=== PATIENT | female | born 1980 | race Caucasian/White ===

== ENCOUNTER 2018-07-01 14:50 | Inpatient (IN) | payer OTHER ==
[~2018-07-01] VITALS: Ht 157.5 cm; Wt 77.6 kg
[2018-07-01] MEDS ORDERED: TiZANidine HCL 4 MG TABLET PO PRN (16:45)
[2018-07-01] MEDS ORDERED: DOCUSATE SODIUM 283 MG/5 ML MINI-ENEMA PR PRN (16:45)
[2018-07-01 16:56] VITALS: BP 128/70
[2018-07-01 17:00] VITALS: BP 126/70
[2018-07-01] MEDS: OxyCODONE HCL 5 MG IR TABLET PO PRN ×2 (17:06→21:27)
[2018-07-01 17:20] LABS: APPEARANCE,URINE CLEAR (CLEAR); BILIRUBIN,URINE NEGATIVE (NEGATIVE); GLUCOSE, URINE (UA) NEGATIVE (NEGATIVE); KETONES,URINE NEGATIVE (NEGATIVE); LEUKOCYTE ESTERASE ,URINE NEGATIVE (NEGATIVE); NITRATE,URINE NEGATIVE (NEGATIVE); OCCULT BLOOD,URINE LARGE (NEGATIVE); PH,URINE 7.5 (5.0-8.0); PROTEIN,URINE NEGATIVE (NEGATIVE); UROBILINOGEN,URINE 0.2 mg/dL (<=1.0)
[2018-07-01 17:27] LABS: RBC,URINE 26-50 /HPF (0-2)
[2018-07-01 17:29] LABS: BACTERIA,URINE Rare /HPF (None Seen); SQUAMOUS EPITHELIAL CELL,UR Few /LPF (None Seen); WBC,URINE 0-2 /HPF (0-5)
[2018-07-01] MEDS: GABAPENTIN 300 MG CAPSULE PO SCH (20:17)
[2018-07-01] MEDS: SENNA 187 MG TABLET PO SCH (20:17)
[2018-07-01] MEDS: DOCUSATE SODIUM 250 MG CAPSULE PO SCH (20:17)
[2018-07-01 21:25] VITALS: BP 122/57
[2018-07-02 00:50] VITALS: BP 102/63
[2018-07-02] MEDS: ACETAMINOPHEN 325 MG TABLET PO PRN ×2 (00:50→16:49)
[2018-07-02 06:47] LABS: BASOPHILS % (AUTO) 0.7 % (0.0-2.0); HEMATOCRIT 27.7 % (36-46); HEMOGLOBIN 8.8 g/dL (12.0-16.0); LYMPHOCYTES # (AUTO) 2.6 K/uL (1.0-4.8); LYMPHOCYTES % (AUTO) 40.8 % (22.0-44.0); MEAN CORPUSCULAR HEMOGLOBIN 22.5 pg (26.0-34.0); MEAN CORPUSCULAR HGB CONC 31.6 G/dL (31.0-37.0); MEAN CORPUSCULAR VOLUME 71 fL (80-100); MONOCYTES # (AUTO) 0.4 K/uL (0.1-1.0); MONOCYTES % (AUTO) 6.3 % (2.0-9.0); NEUTROPHILS # (AUTO) 3.3 K/uL (1.8-7.7); NEUTROPHILS % (AUTO) 51.2 % (40.0-70.0); PLATELET COUNT (AUTO) 237 K/uL (150-450); RED CELL DISTRIBUTION WIDTH 26.5 % (11.5-14.5)
[2018-07-02 06:59] LABS: ALANINE AMINOTRANSFERASE 17 U/L (12-78); ALBUMIN 2.8 g/dL (3.4-5.0); ALKALINE PHOSPHATASE 65 U/L (46-116); ANION GAP 3 mmol/L (8-16); ASPARTATE AMINOTRANSFERASE 18 U/L (15-37); BILIRUBIN,TOTAL 0.5 mg/dL (0.1-1.0); CALCIUM, TOTAL 8.5 mg/dL (8.8-10.5); CARBON DIOXIDE 30 mmol/L (22-29); CHLORIDE 102 mmol/L (98-107); CREATININE 0.84 mg/dL (0.60-1.30); GLOMERULAR FILTR. RATE CALC > 60 mL/min (>60); GLUCOSE,RANDOM 99 mg/dL (70-110); POTASSIUM 4.2 mmol/L (3.5-5.1); SODIUM SERUM 135 mmol/L (136-145); TOTAL PROTEIN, SERUM 6.6 g/dL (6.4-8.2); UREA NITROGEN, BLOOD 8 mg/dL (7-18)
[2018-07-02] MEDS ORDERED: FERG325 PO (07:27)
[2018-07-02] MEDS ORDERED: MEDR4 PO (07:27)
[2018-07-02] MEDS ORDERED: NAPR-943 PO (07:27)
[2018-07-02 07:30] VITALS: BP 138/92
[2018-07-02] MEDS: GABAPENTIN 300 MG CAPSULE PO SCH ×3 (07:48→20:22)
[2018-07-02] MEDS: FERROUS GLUCONATE 324 MG TABLET PO SCH (07:48)
[2018-07-02] MEDS: DOCUSATE SODIUM 250 MG CAPSULE PO SCH ×2 (07:48→20:23)
[2018-07-02] MEDS: OxyCODONE HCL 5 MG IR TABLET PO PRN ×2 (11:44→18:13)
[2018-07-02 16:42] VITALS: BP 121/84
[2018-07-02] MEDS: SENNA 187 MG TABLET PO SCH (20:22)
[2018-07-03 01:37] VITALS: BP 122/82
[2018-07-03] MEDS: ACETAMINOPHEN 325 MG TABLET PO PRN ×3 (01:40→22:17)
[2018-07-03 08:14] VITALS: BP 116/69
[2018-07-03] MEDS: FERROUS GLUCONATE 324 MG TABLET PO SCH (08:29)
[2018-07-03] MEDS: DOCUSATE SODIUM 250 MG CAPSULE PO SCH ×2 (08:29→20:07)
[2018-07-03] MEDS: GABAPENTIN 300 MG CAPSULE PO SCH ×3 (08:29→20:07)
[2018-07-03] MEDS: OxyCODONE HCL 5 MG IR TABLET PO PRN ×2 (11:23→19:55)
[2018-07-03] MEDS ORDERED: ERGOCALCIFEROL (VIT D2) 50,000 UNITS CAPSULE PO ONE (12:45)
[2018-07-03] MEDS ORDERED: *NON-FORMULARY MED [ENTER DRUG, DOSE, FREQ IN COMMENTS] CLINICAL ONE (12:45)
[2018-07-03] MEDS ORDERED: CAFFEINE PO PRN (13:30)
[2018-07-03] MEDS ORDERED: [UNRECOGNIZED DRUG - OTHER] PO PRN (13:30)
[2018-07-03] MEDS ORDERED: ACETAMINOPHEN PO PRN (13:30)
[2018-07-03 15:48] VITALS: BP 121/78
[2018-07-03] MEDS: NYSTATIN 500,000 UNITS/5 ML SUSPENSION UDCUP PO SCH ×2 (16:07→20:07)
[2018-07-03 19:54] VITALS: BP 108/77
[2018-07-03] MEDS: SENNA 187 MG TABLET PO SCH (20:07)
[2018-07-03 23:15] VITALS: BP 129/72
[2018-07-04 07:15] VITALS: BP 115/73
[2018-07-04] MEDS: NYSTATIN 500,000 UNITS/5 ML SUSPENSION UDCUP PO SCH ×3 (08:00→21:21)
[2018-07-04] MEDS: GABAPENTIN 300 MG CAPSULE PO SCH ×3 (08:00→21:21)
[2018-07-04] MEDS: FERROUS GLUCONATE 324 MG TABLET PO SCH (08:00)
[2018-07-04] MEDS: DOCUSATE SODIUM 250 MG CAPSULE PO SCH ×2 (08:01→21:00)
[2018-07-04] MEDS: OxyCODONE HCL 5 MG IR TABLET PO PRN ×2 (08:56→21:57)
[2018-07-04] MEDS: ACETAMINOPHEN 325 MG TABLET PO PRN (10:21)
[2018-07-04 17:15] VITALS: BP 117/73
[2018-07-04] MEDS: SENNA 187 MG TABLET PO SCH (21:00)
[2018-07-05 00:44] VITALS: BP 110/71
[2018-07-05] MEDS: ACETAMINOPHEN 325 MG TABLET PO PRN ×2 (00:44→15:54)
[2018-07-05 07:39] VITALS: BP 92/60
[2018-07-05] MEDS: GABAPENTIN 300 MG CAPSULE PO SCH ×3 (08:06→20:50)
[2018-07-05] MEDS: NYSTATIN 500,000 UNITS/5 ML SUSPENSION UDCUP PO SCH ×3 (08:06→20:50)
[2018-07-05] MEDS: DOCUSATE SODIUM 250 MG CAPSULE PO SCH ×2 (08:07→20:51)
[2018-07-05] MEDS: FERROUS GLUCONATE 324 MG TABLET PO SCH (08:07)
[2018-07-05] MEDS: OxyCODONE HCL 5 MG IR TABLET PO PRN (08:52)
[2018-07-05 15:51] VITALS: BP 124/56
[2018-07-05] MEDS: ONDANSETRON HCL 4 MG TABLET PO PRN (15:54)
[2018-07-05] MEDS: SENNA 187 MG TABLET PO SCH (20:51)
[2018-07-05 23:44] VITALS: BP 110/63
[2018-07-06 07:25] VITALS: BP 101/61
[2018-07-06] MEDS: OxyCODONE HCL 5 MG IR TABLET PO PRN ×2 (08:24→17:39)
[2018-07-06] MEDS: LIDOCAINE 5% TRANSDERMAL PATCH TD SCH (08:25)
[2018-07-06] MEDS: NYSTATIN 500,000 UNITS/5 ML SUSPENSION UDCUP PO SCH ×3 (08:26→21:06)
[2018-07-06] MEDS: FERROUS GLUCONATE 324 MG TABLET PO SCH (08:26)
[2018-07-06] MEDS: GABAPENTIN 300 MG CAPSULE PO SCH ×3 (08:26→21:06)
[2018-07-06] MEDS: DOCUSATE SODIUM 250 MG CAPSULE PO SCH ×2 (08:26→21:06)
[2018-07-06] MEDS: ONDANSETRON HCL 4 MG TABLET PO PRN (10:09)
[2018-07-06] MEDS: ACETAMINOPHEN 325 MG TABLET PO PRN ×2 (11:48→21:07)
[2018-07-06 14:44] LABS: HEMATOCRIT 26.8 % (36-46); HEMOGLOBIN 8.3 g/dL (12.0-16.0); MEAN CORPUSCULAR HEMOGLOBIN 22.4 pg (26.0-34.0); MEAN CORPUSCULAR VOLUME 72 fL (80-100); PLATELET COUNT (AUTO) 333 K/uL (150-450); RED CELL DISTRIBUTION WIDTH 26.6 % (11.5-14.5)
[2018-07-06 14:45] LABS: BAND NEUTROPHILS % (MANUAL) 0 % (0-5)
[2018-07-06 15:20] VITALS: BP 101/62
[2018-07-06 15:30] LABS: EOSINOPHILS % (MANUAL) 1 % (1-6); LYMPHOCYTES % (MANUAL) 26 % (22-44); MONOCYTES % (MANUAL) 7 % (2-9); SEGMENTED NEUTROPHILS % 66 % (40-70)
[2018-07-06 16:21] LABS: APPEARANCE,URINE CLEAR (CLEAR); BILIRUBIN,URINE NEGATIVE (NEGATIVE); GLUCOSE, URINE (UA) NEGATIVE (NEGATIVE); KETONES,URINE NEGATIVE (NEGATIVE); LEUKOCYTE ESTERASE ,URINE NEGATIVE (NEGATIVE); NITRATE,URINE NEGATIVE (NEGATIVE); OCCULT BLOOD,URINE NEGATIVE (NEGATIVE); PH,URINE 5.5 (5.0-8.0); PROTEIN,URINE NEGATIVE (NEGATIVE); UROBILINOGEN,URINE 0.2 mg/dL (<=1.0)
[2018-07-06 16:33] LABS: SQUAMOUS EPITHELIAL CELL,UR Few /LPF (None Seen)
[2018-07-06 16:35] LABS: BACTERIA,URINE None Seen /HPF (None Seen); MUCUS,URINE Few LPF (None Seen); RBC,URINE None Seen /HPF (0-2); WBC,URINE None Seen /HPF (0-5)
[2018-07-06] MEDS: SENNA 187 MG TABLET PO SCH (21:06)
[2018-07-06] MEDS: -LIDODERM PATCH NOTE- MISC SCH (21:07)
[2018-07-06 23:28] VITALS: BP 98/57
[2018-07-07 07:18] VITALS: BP 104/66
[2018-07-07] MEDS: OxyCODONE HCL 5 MG IR TABLET PO PRN ×2 (07:47→19:43)
[2018-07-07] MEDS: GABAPENTIN 300 MG CAPSULE PO SCH ×3 (07:51→21:28)
[2018-07-07] MEDS: FERROUS GLUCONATE 324 MG TABLET PO SCH (07:51)
[2018-07-07] MEDS: NYSTATIN 500,000 UNITS/5 ML SUSPENSION UDCUP PO SCH ×3 (07:51→21:28)
[2018-07-07] MEDS: DOCUSATE SODIUM 250 MG CAPSULE PO SCH ×2 (07:52→21:28)
[2018-07-07] MEDS: LIDOCAINE 5% TRANSDERMAL PATCH TD SCH (07:52)
[2018-07-07] MEDS: ONDANSETRON HCL 4 MG TABLET PO PRN (10:58)
[2018-07-07 15:50] VITALS: BP 110/62
[2018-07-07] MEDS: ACETAMINOPHEN 325 MG TABLET PO PRN ×2 (16:54→23:33)
[2018-07-07] MEDS: SENNA 187 MG TABLET PO SCH (21:28)
[2018-07-07] MEDS: -LIDODERM PATCH NOTE- MISC SCH (21:28)
[2018-07-08 08:00] VITALS: BP 107/52
[2018-07-08] MEDS ORDERED: ERGOCALCIFEROL (VIT D2) 50,000 UNITS CAPSULE PO SCH (09:00)
[2018-07-08] MEDS: DOCUSATE SODIUM 250 MG CAPSULE PO SCH ×2 (09:14→20:38)
[2018-07-08] MEDS: ERGOCALCIFEROL (VIT D2) 50,000 UNITS CAPSULE PO SCH (09:14)
[2018-07-08] MEDS: NYSTATIN 500,000 UNITS/5 ML SUSPENSION UDCUP PO SCH ×3 (09:14→20:38)
[2018-07-08] MEDS: GABAPENTIN 300 MG CAPSULE PO SCH ×3 (09:15→20:38)
[2018-07-08] MEDS: FERROUS GLUCONATE 324 MG TABLET PO SCH (09:15)
[2018-07-08] MEDS: LIDOCAINE 5% TRANSDERMAL PATCH TD SCH (09:16)
[2018-07-08] MEDS ORDERED: MAGNESIUM HYDROXIDE SUSPENSION 30 ML UDCUP PO PRN (12:45)
[2018-07-08] MEDS: OxyCODONE HCL 5 MG IR TABLET PO PRN (13:02)
[2018-07-08 15:55] VITALS: BP 119/78
[2018-07-08] MEDS: FLUTICASONE PROPIONATE 50 MCG/SPRAY 16 GM NASAL SPRAY NASAL SCH (20:37)
[2018-07-08] MEDS: SENNA 187 MG TABLET PO SCH (20:38)
[2018-07-08] MEDS: -LIDODERM PATCH NOTE- MISC SCH (20:39)
[2018-07-08 23:42] VITALS: BP 121/77
[2018-07-09 07:44] VITALS: BP 105/61
[2018-07-09] MEDS: LIDOCAINE 5% TRANSDERMAL PATCH TD SCH (09:05)
[2018-07-09] MEDS: FERROUS GLUCONATE 324 MG TABLET PO SCH (09:05)
[2018-07-09] MEDS: OxyCODONE HCL 5 MG IR TABLET PO PRN (09:05)
[2018-07-09] MEDS: DOCUSATE SODIUM 250 MG CAPSULE PO SCH ×2 (09:06→20:23)
[2018-07-09] MEDS: FLUTICASONE PROPIONATE 50 MCG/SPRAY 16 GM NASAL SPRAY NASAL SCH ×2 (09:06→20:23)
[2018-07-09] MEDS: GABAPENTIN 300 MG CAPSULE PO SCH ×3 (09:06→20:23)
[2018-07-09] MEDS: NYSTATIN 500,000 UNITS/5 ML SUSPENSION UDCUP PO SCH ×3 (09:06→20:23)
[2018-07-09 15:21] VITALS: BP 116/85
[2018-07-09] MEDS: -LIDODERM PATCH NOTE- MISC SCH (20:22)
[2018-07-09] MEDS: SENNA 187 MG TABLET PO SCH (20:24)
[2018-07-09 23:00] VITALS: BP 116/67
[2018-07-10 07:31] VITALS: BP 104/58
[2018-07-10] MEDS ORDERED: ACETAMINOPHEN PO PRN (08:27)
[2018-07-10] MEDS ORDERED: CAFFEINE PO PRN (08:27)
[2018-07-10] MEDS ORDERED: [UNRECOGNIZED DRUG - OTHER] PO PRN (08:27)
[2018-07-10] MEDS: LIDOCAINE 5% TRANSDERMAL PATCH TD SCH (09:07)
[2018-07-10] MEDS: FERROUS GLUCONATE 324 MG TABLET PO SCH (09:08)
[2018-07-10] MEDS: DOCUSATE SODIUM 250 MG CAPSULE PO SCH ×2 (09:08→20:30)
[2018-07-10] MEDS: GABAPENTIN 300 MG CAPSULE PO SCH ×3 (09:08→20:30)
[2018-07-10] MEDS: FLUTICASONE PROPIONATE 50 MCG/SPRAY 16 GM NASAL SPRAY NASAL SCH ×2 (09:08→20:30)
[2018-07-10] MEDS: NYSTATIN 500,000 UNITS/5 ML SUSPENSION UDCUP PO SCH ×2 (09:08→16:03)
[2018-07-10] MEDS: OxyCODONE HCL 5 MG IR TABLET PO PRN ×2 (10:54→17:44)
[2018-07-10 15:06] VITALS: BP 106/68
[2018-07-10] MEDS: -LIDODERM PATCH NOTE- MISC SCH (20:30)
[2018-07-10] MEDS: SENNA 187 MG TABLET PO SCH (20:30)
[2018-07-10] MEDS: ACETAMINOPHEN 325 MG TABLET PO PRN (20:39)
[2018-07-10 23:26] VITALS: BP 111/65
[2018-07-11 07:20] VITALS: BP 101/60
[2018-07-11] MEDS: GABAPENTIN 300 MG CAPSULE PO SCH ×3 (10:07→21:18)
[2018-07-11] MEDS: LIDOCAINE 5% TRANSDERMAL PATCH TD SCH (10:07)
[2018-07-11] MEDS: FERROUS GLUCONATE 324 MG TABLET PO SCH (10:07)
[2018-07-11] MEDS: DOCUSATE SODIUM 250 MG CAPSULE PO SCH ×2 (10:07→21:00)
[2018-07-11] MEDS: FLUTICASONE PROPIONATE 50 MCG/SPRAY 16 GM NASAL SPRAY NASAL SCH ×2 (10:07→21:18)
[2018-07-11 15:30] VITALS: BP 119/85
[2018-07-11] MEDS: ACETAMINOPHEN 325 MG TABLET PO PRN (18:18)
[2018-07-11] MEDS: SENNA 187 MG TABLET PO SCH (21:00)
[2018-07-11] MEDS: FERROUS SULFATE 325 MG EC TABLET PO SCH (21:19)
[2018-07-11] MEDS: -LIDODERM PATCH NOTE- MISC SCH (21:19)
[2018-07-12] VITALS: BP 115/74
[2018-07-12 07:00] VITALS: BP 108/58
[2018-07-12] MEDS: DOCUSATE SODIUM 250 MG CAPSULE PO SCH ×3 (09:00→20:05)
[2018-07-12] MEDS: GABAPENTIN 300 MG CAPSULE PO SCH ×3 (09:05→20:05)
[2018-07-12] MEDS: FERROUS SULFATE 325 MG EC TABLET PO SCH ×2 (09:05→20:05)
[2018-07-12] MEDS: FERROUS GLUCONATE 324 MG TABLET PO SCH (09:05)
[2018-07-12] MEDS: LIDOCAINE 5% TRANSDERMAL PATCH TD SCH (09:05)
[2018-07-12] MEDS: FLUTICASONE PROPIONATE 50 MCG/SPRAY 16 GM NASAL SPRAY NASAL SCH ×2 (09:05→20:05)
[2018-07-12 15:10] VITALS: BP 123/70
[2018-07-12] MEDS: -LIDODERM PATCH NOTE- MISC SCH (20:05)
[2018-07-12] MEDS: SENNA 187 MG TABLET PO SCH (20:06)
[2018-07-12 23:30] VITALS: BP 103/48
[2018-07-13 07:56] VITALS: BP 85/49
[2018-07-13] MEDS: DOCUSATE SODIUM 250 MG CAPSULE PO SCH ×2 (09:00→20:30)
[2018-07-13] MEDS: LIDOCAINE 5% TRANSDERMAL PATCH TD SCH (09:00)
[2018-07-13] MEDS: FERROUS SULFATE 325 MG EC TABLET PO SCH ×2 (09:22→20:29)
[2018-07-13] MEDS: FLUTICASONE PROPIONATE 50 MCG/SPRAY 16 GM NASAL SPRAY NASAL SCH ×2 (09:22→20:29)
[2018-07-13] MEDS: GABAPENTIN 300 MG CAPSULE PO SCH ×3 (09:22→20:29)
[2018-07-13] MEDS: FERROUS GLUCONATE 324 MG TABLET PO SCH (09:22)
[2018-07-13] MEDS: ACETAMINOPHEN 325 MG TABLET PO PRN ×2 (11:20→18:17)
[2018-07-13] MEDS: OxyCODONE HCL 5 MG IR TABLET PO PRN (14:05)
[2018-07-13 15:55] VITALS: BP 121/73
[2018-07-13] MEDS: SENNA 187 MG TABLET PO SCH (20:30)
[2018-07-13] MEDS: -LIDODERM PATCH NOTE- MISC SCH (20:34)
[2018-07-13 23:25] VITALS: BP 110/75
[2018-07-14 06:49] LABS: HEMATOCRIT 28.2 % (36-46); HEMOGLOBIN 8.8 g/dL (12.0-16.0); MEAN CORPUSCULAR HEMOGLOBIN 23.2 pg (26.0-34.0); MEAN CORPUSCULAR HGB CONC 31.3 G/dL (31.0-37.0); MEAN CORPUSCULAR VOLUME 74 fL (80-100); PLATELET COUNT (AUTO) 363 K/uL (150-450); RED BLOOD CELL COUNT(AUTO) 3.81 MIL/uL (4.00-5.20); RED CELL DISTRIBUTION WIDTH 26.6 % (11.5-14.5)
[2018-07-14 07:13] VITALS: BP 101/67
[2018-07-14 07:42] LABS: BAND NEUTROPHILS % (MANUAL) 0 % (0-5)
[2018-07-14 07:45] LABS: BASOPHILS % (MANUAL) 1 % (0-2); EOSINOPHILS % (MANUAL) 5 % (1-6); LYMPHOCYTES % (MANUAL) 27 % (22-44); MONOCYTES % (MANUAL) 4 % (2-9); SEGMENTED NEUTROPHILS % 63 % (40-70)
[2018-07-14] MEDS: GABAPENTIN 300 MG CAPSULE PO SCH ×3 (08:57→20:00)
[2018-07-14] MEDS: FERROUS SULFATE 325 MG EC TABLET PO SCH ×2 (08:58→20:00)
[2018-07-14] MEDS: FERROUS GLUCONATE 324 MG TABLET PO SCH (08:58)
[2018-07-14] MEDS: FLUTICASONE PROPIONATE 50 MCG/SPRAY 16 GM NASAL SPRAY NASAL SCH ×2 (08:58→20:00)
[2018-07-14] MEDS: LIDOCAINE 5% TRANSDERMAL PATCH TD SCH (08:59)
[2018-07-14] MEDS: DOCUSATE SODIUM 250 MG CAPSULE PO SCH (08:59)
[2018-07-14] MEDS: ACETAMINOPHEN 325 MG TABLET PO PRN (11:41)
[2018-07-14] MEDS ORDERED: DOCUSATE SODIUM 250 MG CAPSULE PO PRN (11:45)
[2018-07-14 15:39] VITALS: BP 112/68
[2018-07-14] MEDS: SENNA 187 MG TABLET PO SCH (20:01)
[2018-07-14] MEDS: OxyCODONE HCL 5 MG IR TABLET PO PRN (20:01)
[2018-07-15 02:00] VITALS: BP 108/68
[2018-07-15 07:47] VITALS: BP 101/58
[2018-07-15] MEDS: FLUTICASONE PROPIONATE 50 MCG/SPRAY 16 GM NASAL SPRAY NASAL SCH ×2 (09:00→20:16)
[2018-07-15] MEDS: FERROUS SULFATE 325 MG EC TABLET PO SCH ×2 (09:18→20:14)
[2018-07-15] MEDS: GABAPENTIN 300 MG CAPSULE PO SCH ×3 (09:18→20:14)
[2018-07-15] MEDS: ACETAMINOPHEN 325 MG TABLET PO PRN ×2 (09:18→15:01)
[2018-07-15] MEDS: ERGOCALCIFEROL (VIT D2) 50,000 UNITS CAPSULE PO SCH (09:19)
[2018-07-15 15:00] VITALS: BP 106/65
[2018-07-15] MEDS: OxyCODONE HCL 5 MG IR TABLET PO PRN (20:15)
[2018-07-15] MEDS: SENNA 187 MG TABLET PO SCH (20:23)
[2018-07-16 02:51] VITALS: BP 106/62
[2018-07-16 07:13] VITALS: BP 95/53
[2018-07-16] MEDS: GABAPENTIN 300 MG CAPSULE PO SCH ×3 (08:12→20:05)
[2018-07-16] MEDS: FERROUS SULFATE 325 MG EC TABLET PO SCH ×2 (08:12→20:05)
[2018-07-16] MEDS: FLUTICASONE PROPIONATE 50 MCG/SPRAY 16 GM NASAL SPRAY NASAL SCH ×2 (08:12→20:06)
[2018-07-16 09:00] VITALS: BP 94/60
[2018-07-16 16:01] VITALS: BP 106/61
[2018-07-16] MEDS: SENNA 187 MG TABLET PO SCH (20:05)
[2018-07-16] MEDS ORDERED: COLD CREAM, SKIN EMOLLIENT 340 GM JAR TP SCH (21:00)
[2018-07-16 23:23] VITALS: BP 108/69
[2018-07-17 07:14] VITALS: BP 134/70
[2018-07-17] MEDS: FERROUS SULFATE 325 MG EC TABLET PO SCH ×2 (09:14→20:14)
[2018-07-17] MEDS: GABAPENTIN 300 MG CAPSULE PO SCH ×3 (09:14→20:15)
[2018-07-17] MEDS: FLUTICASONE PROPIONATE 50 MCG/SPRAY 16 GM NASAL SPRAY NASAL SCH ×2 (09:15→20:14)
[2018-07-17 14:30] VITALS: BP 102/58
[2018-07-17 15:42] VITALS: BP 91/52
[2018-07-17 20:07] VITALS: BP 108/64
[2018-07-17] MEDS: SENNA 187 MG TABLET PO SCH (20:14)
[2018-07-17 23:05] VITALS: BP 104/63
[2018-07-18 07:49] VITALS: BP 96/53
[2018-07-18] MEDS: FERROUS SULFATE 325 MG EC TABLET PO SCH ×2 (08:19→20:27)
[2018-07-18] MEDS: GABAPENTIN 300 MG CAPSULE PO SCH ×3 (08:19→20:27)
[2018-07-18] MEDS: FLUTICASONE PROPIONATE 50 MCG/SPRAY 16 GM NASAL SPRAY NASAL SCH ×2 (08:19→20:27)
[2018-07-18] MEDS: ACETAMINOPHEN 325 MG TABLET PO PRN (08:38)
[2018-07-18] MEDS ORDERED: GABA-531 PO ×2 (15:25→15:28)
[2018-07-18] MEDS ORDERED: FERR325T22 PO (15:28)
[2018-07-18] MEDS ORDERED: ERGO500014 PO (15:28)
[2018-07-18] MEDS ORDERED: ACET-784 PO (15:28)
[2018-07-18] MEDS ORDERED: FLUT16H NASAL (15:28)
[2018-07-18 15:58] VITALS: BP 106/65
[2018-07-18] MEDS: SENNA 187 MG TABLET PO SCH (20:27)
[2018-07-19 03:00] VITALS: BP 95/60
[2018-07-19 07:30] VITALS: BP 107/60
[2018-07-19] MEDS: GABAPENTIN 300 MG CAPSULE PO SCH (09:38)
[2018-07-19] MEDS: FERROUS SULFATE 325 MG EC TABLET PO SCH (09:38)
[2018-07-19] MEDS: FLUTICASONE PROPIONATE 50 MCG/SPRAY 16 GM NASAL SPRAY NASAL SCH (09:38)
== END 2018-07-19 16:29 | disposition home health service (06) | DRG 565 ==
LOC: 2WR 14:50
DX: D16.6 Benign neoplasm of vertebral column (principal); M47.12 Other spondylosis with myelopathy, cervical region; G95.29 Other cord compression; B37.0 Candidal stomatitis; F33.2 Major depressive disorder, recurrent severe without psychotic features; M51.16 Intervertebral disc disorders with radiculopathy, lumbar region; R20.1 Hypoesthesia of skin; R13.10 Dysphagia, unspecified; G89.29 Other chronic pain; R19.03 Right lower quadrant abdominal swelling, mass and lump; D64.9 Anemia, unspecified; J30.9 Allergic rhinitis, unspecified; K59.00 Constipation, unspecified; M48.02 Spinal stenosis, cervical region; Z91.81 History of falling; Z98.1 Arthrodesis status
CPT/HCPCS: 87081; 92507; 92610; 97110; 97112; 97116; 97150; 97163; 97167; 97530; 97535; 99366; Q0162